=== PATIENT | female | born 1990 | race American Indian/Alaskan Native ===

== ENCOUNTER 2019-11-17 15:17 | Emergency (ER) | payer SELFPAY ==
--- NOTE | 2019-11-17 15:37 | Emergency Department Report ---
ED Psych HPI - General Chief Complaint: Psych Stated Complaint: MH Time Seen by Provider: 11/17/19 15:33 Source: RN/MD, EMS Mode of arrival: Stretcher Limitations: Altered Mental Status - History of Present Illness Initial Comments: Pt is a 29-year-old -[place] female that comes to the ER with suicidal ideation and actual intense/asked to hurt herself. She took 4 Motrin and drank a bunch of alcohol. On my initial exam she is moaning to deep sternal rub. I have asked the nurse to move her to a monitored room. Patient is being moved to room 18 where she can be monitored and evaluated for more detailed assessment. Ciwa assessments initiated. I am limited with history at this time given the patient's condition. No family present at the time. Per verbal report pt has been depressed after loss of child. MD Complaint: suicidal ideation, feels depressed Associated Psychiatric Symptoms: suicidal ideation Context: recent alcohol abuse Treatments Prior to Arrival: none If Self Harm: has acted on plan, intentional overdose - Related Data Home Medications Medication Instructions Recorded Confirmed Last Taken No Known Home Medications [No 11/17/19 11/17/19 Unknown Reported Home Medications] Allergies Allergy/AdvReac Type Severity Reaction Status Date / Time acetaminophen [From Percocet] AdvReac Hives Verified 11/17/19 15:23 oxycodone [From Percocet] AdvReac Hives Verified 11/17/19 15:23 ED Review of Systems ROS: Stated complaint: MH Other details as noted in HPI Comment: Unobtainable due to pts medical conditions ED Past Medical Hx - Past Medical History Previous Medical History?: No - Surgical History Past Surgical History?: No - Social History Substance Use Type: Alcohol - Medications Home Medications: Home Medications Medication Instructions Recorded Confirmed Last Taken Type No Known Home Medications [No 11/17/19 11/17/19 Unknown History Reported Home Medications] ED Physical Exam - General Limitations: No Limitations General appearance: appears intoxicated - Head Head exam: Present: normocephalic - Eye Eye exam: Present: normal appearance, PERRL - ENT ENT exam: Present: mucous membranes dry - Neck Neck exam: Present: normal inspection - Respiratory Respiratory exam: Present: normal lung sounds bilaterally. Absent: respiratory distress - Cardiovascular Cardiovascular Exam: Present: regular rate, normal rhythm. Absent: systolic murmur, diastolic murmur, rubs, gallop - GI/Abdominal GI/Abdominal exam: Present: soft, normal bowel sounds - Extremities Exam Extremities exam: Present: normal inspection - Back Exam Back exam: Present: normal inspection - Neurological Exam Neurological exam: Present: altered - Psychiatric Psychiatric exam: Present: depressed - Skin Skin exam: Present: warm, dry. Absent: rash ED Course Vital Signs 11/17/19 11/17/19 11/18/19 15:36 18:06 02:00 Temperature 98.6 F 98.2 F Pulse Rate 87 88 76 Respiratory 18 12 16 Rate Blood Pressure 95/59 91/63 82/51 [Right] O2 Sat by Pulse 97 99 97 Oximetry 11/18/19 11/18/19 07:51 12:18 Temperature 97.7 F Pulse Rate 83 95 H Respiratory 16 16 Rate Blood Pressure 97/60 114/87 [Right] O2 Sat by Pulse 100 Oximetry - Reevaluation(s) Reevaluation #1: 11/18/19 12:13 calm and cooperated MHE to see and dispo pt ED Medical Decision Making - Lab Data Result diagrams: 11/17/19 16:11 11/17/19 16:11 - EKG Data -: EKG Interpreted by Me - Radiology Data Radiology results: report reviewed, image reviewed - Medical Decision Making 1600 pt intoxicated and moaning to deep sternal rub I've asked Ariana Lewis RN to move her to a monitored bed for frequent assessments. CIWA assessments initiated. PLAN PSYCH HOLD TO MONITORED BED- RETAIL OPERATIONS SPECIALIST MED CLEARANCE LABS FOR MHE MHE EVAL CIWA ASSESSMENTS- RN TO REPORT CIWA >6 FOR PROVIDER TO [facility] IV E EXAM AND DISPO PER THEIR RECS. Vital Signs 11/17/19 15:36 Temperature 98.6 F Pulse Rate 87 Respiratory 18 Rate Blood Pressure 95/59 [Right] O2 Sat by Pulse 97 Oximetry Labs 11/17/19 11/17/19 11/17/19 16:11 16:11 16:11 WBC 7.2 RBC 4.43 Hgb 13.6 Hct 40.2 MCV 91 MCH 31 MCHC 34 RDW 14.2 Plt Count 332 Lymph % (Auto) 30.0 [place] % (Auto) 10.3 H Eos % (Auto) 2.0 Baso % (Auto) 0.7 Lymph # 2.1 [place] # 0.7 Eos # 0.1 Baso # 0.0 Seg Neutrophils % 57.0 Seg Neutrophils # 4.1 PT INR APTT Sodium 141 Potassium 3.6 Chloride 102.2 Carbon Dioxide 25 Anion Gap 17 BUN 9 Creatinine 0.7 Estimated GFR > 60 BUN/Creatinine Ratio 13 Glucose 84 Calcium 9.0 Magnesium Total Bilirubin 0.30 AST 14 ALT 9 Alkaline Phosphatase 59 Total Protein 7.3 Albumin 4.2 Albumin/Globulin Ratio 1.4 TSH HCG, Qual Salicylates < 0.3 L Acetaminophen Plasma/Serum Alcohol 11/17/19 11/17/19 11/17/19 16:11 16:11 16:11 WBC RBC Hgb Hct MCV MCH MCHC RDW Plt Count Lymph % (Auto) [place] % (Auto) Eos % (Auto) Baso % (Auto) Lymph # [place] # Eos # Baso # Seg Neutrophils % Seg Neutrophils # PT INR APTT Sodium Potassium Chloride Carbon Dioxide Anion Gap BUN Creatinine Estimated GFR BUN/Creatinine Ratio Glucose Calcium Magnesium Total Bilirubin AST ALT Alkaline Phosphatase Total Protein Albumin Albumin/Globulin Ratio TSH 0.668 HCG, Qual Salicylates Acetaminophen < 5.0 L Plasma/Serum Alcohol 0.19 H 11/17/19 11/17/19 11/17/19 16:11 16:23 16:23 WBC RBC Hgb Hct MCV MCH MCHC RDW Plt Count Lymph % (Auto) [place] % (Auto) Eos % (Auto) Baso % (Auto) Lymph # [place] # Eos # Baso # Seg Neutrophils % Seg Neutrophils # PT 12.6 INR 0.93 APTT 29.4 Sodium Potassium Chloride Carbon Dioxide Anion Gap BUN Creatinine Estimated GFR BUN/Creatinine Ratio Glucose Calcium Magnesium 2.20 Total Bilirubin AST ALT Alkaline Phosphatase Total Protein Albumin Albumin/Globulin Ratio TSH HCG, Qual Negative Salicylates Acetaminophen Plasma/Serum Alcohol medically cleared for MSE dispo per MHE 1530 SEE MHE NOTED PT BEING D/C ON SAFETY PLAN WITH 2 ADULT FAMILY MEMBERS INCLUDING HER MOTHER PT WILL FOLLOW UP OUTPUT VERBALIZES UNDERSTANDING OF DISCHARGE PLAN OF CARE. - Differential Diagnosis NABIL - Critical care attestation.: If time is entered above; I have spent that time in minutes in the direct care of this critically ill patient, excluding procedure time. ED Disposition Clinical Impression: Depression, Suicidal behavior Disposition: DC-01 TO HOME OR SELFCARE Is pt being admited?: No Does the pt Need Aspirin: No Condition: Stable Additional Instructions: FOLLOW UP PER MHE RECOMMENDATION SAFETY PLAN DISCUSSED AVOID DRUGS AND ALCOHOL DIET AND ACTIVITY TOLERATED Referrals: PAPO VARELA MD [Staff Physician] - 3-5 Days Time of Disposition: 12:14
[2019-11-17 16:40] LABS: Basophils % (Auto) 0.7 % (0.0-1.8); Eosinophils # (Auto) 0.1 K/mm3 (0.0-0.4); Hematocrit 40.2 % (30.3-42.9); Hemoglobin 13.6 gm/dl (10.1-14.3); Lymphocytes # (Auto) 2.1 K/mm3 (1.2-5.4); Mean Corpuscular HGB Conc 34 % (30-34); Mean Corpuscular Volume 91 fl (79-97); Monocytes # (Auto) 0.7 K/mm3 (0.0-0.8); Monocytes % (Auto) 10.3 % (0.0-7.3); Platelet Count 332 K/mm3 (140-440); Red Blood Count 4.43 M/mm3 (3.65-5.03); Red Cell Distribution Width 14.2 % (13.2-15.2)
[2019-11-17 16:50] LABS: Alanine Aminotransferase 9 units/L (7-56); Albumin 4.2 g/dL (3.9-5); BUN/Creatinine Ratio 13; Blood Urea Nitrogen 9 mg/dL (7-17); Hemolysis Index 17
[2019-11-17 17:04] LABS: INR 0.93 (0.87-1.13)
[2019-11-17 17:05] LABS: Partial Thromboplastin Time 29.4 Sec. (24.2-36.6)
[2019-11-17] MEDS ORDERED: THIAMINE 100 MG, FOLIC ACID 1 MG, MULTIPLE VITAMIN INJ, ADULT 10 ML in SODIUM CHLORIDE ... IV ONE (17:07)
--- NOTE | 2019-11-17 17:39 | XRay Report ---
CHEST 1 VIEW INDICATION / CLINICAL INFORMATION: Alcohol Intoxication. COMPARISON: None available. FINDINGS: SUPPORT DEVICES: None. HEART / MEDIASTINUM: No significant abnormality. LUNGS / PLEURA: No significant pulmonary or pleural abnormality. No pneumothorax. ADDITIONAL FINDINGS: No significant additional findings. IMPRESSION: No acute pulmonary or pleural abnormality. Signer Name: Gene Duffy MD FACR Signed: 11/17/2019 5:35 PM Workstation Name: [id number]
[2019-11-17 18:15] LABS: Amphetamine Screen,Urine PRESUMPTIVE NEGATIVE; Benzodiazepines Screen,Urine PRESUMPTIVE NEGATIVE; Cannabinoid Screen,Urine PRESUMPTIVE NEGATIVE; Cocaine Screen,Urine PRESUMPTIVE NEGATIVE; Methadone Screen,Urine PRESUMPTIVE NEGATIVE; Opiate Screen,Urine PRESUMPTIVE NEGATIVE
[2019-11-17 18:16] LABS: Bilirubin,Urine NEG (Negative); Blood,Urine NEG (Negative); Color,Urine Straw (Yellow); Protein,Urine <15 mg/dL mg/dL (Negative); Urobilinogen,Urine < 2.0 mg/dL (<2.0)
[2019-11-18 12:19] VITALS: BP 114/87
--- NOTE | 2019-11-18 12:52 | Consultation ---
History of Present Illness - Reason for Consult Consult date: 11/18/19 Reason for consult: Assess and manage mental health - Chief Complaint Chief complaint: Depression, SI - History of Present Psychiatric Illness Mrs. Doe is a 29 y/o black female who presented to the ER after her mom called 911 after the patient had taken pills and drank alcohol. The patient is very tearful and proceeds to tell me her daughter in a drowning accident. She says she feels "so guilty," and states her baby's absence has been "so overwhelming." But says she believes she's "been coping fine." "I'm undergoing a divorce and my life is a sh*t hole right now." The patient is sitting on side of the cot. She's talkative. Tearful. A/o x 4. She says she has joint custody of her son and right now she's having "separation anxiety." Mrs Doe says she took pills and tried to drown herself because she felt "anything was better than this constant yearning." When asked about sucidal ideation or thoughts of at the present time, the patient replied "No, I'm not suicidal. This has never happened before. Yesterday was a bad time. I have a son I have to live for. It would kill him. He's my everything. Yesterday was a big mistake." Mrs. Doe says she has no psychiatric history and says "I don't know what I was thinking. I promis I'm not going to hurt myself." She denies hallucinations of any kind. She says she has "difficulty sleeping sometimes." The patient says her appetite is "okay most of the times." Mrs. Doe says she has no fear or reservations of going home; "I have plenty of support, and my son needs me." PAST PSYCHIATRIC HISTORY: Diagnoses: Denies Suicide attempts or Self-harm behavior: this admit the first times Prior psychiatric hospitalizations: Denies Substance Abuse history: "[facility] in the past" Previous psychiatric medications tried: None Outpatient treatment: Denies PAST MEDICAL HISTORY: Denies, she states "I'm too healthy" Family Psychiatric History None reported or documented SOCIAL HISTORY Marital Status: , still finalizing divorce Living Arrangements: Mom and family Employment Status: Employed Access to guns/weapons: Denies Education: Some college History of Abuse: Denies Legal History: Charge with "inadequate supervision of her child" REVIEW OF SYSTEMS Constitutional: Negative for weight loss ENT: Negative for stridor Respiratory: Negative for cough or hemoptysis All other systems reviewed and are negative MENTAL STATUS General Appearance and Behavior: Tearful, dressed appropriately Cooperation: Cooperative Psychomotor Behavior: within normal limits Mood: sad, tearful Affect and affective range: Congruent with stated mood Thought Process: Goal-directed Thought Content: Within reality Speech: Normal volume and Regular rate and rhythm Intellectual Functioning Average Suicidal Ideation: Denies SI Homicidal Ideation: Denies HI Impulse Control: intact Insight and Judgment: normal insight and judgment Memory: Normal Attention: Normal Orientation: alert and oriented RECOMMENDATIONS Discontinue 1013 MEDICATIONS: *Lexapro 5mg po daily *Trazodone 50mg po qhs MEDICAL: Per primary team The patient verbalizes understanding that if suicidal ideation arises she should call 911 or the suicide hotline. DISPOSITION: Per primary team, no indication for acute inpatient psychiatric hospitalization at this time. The patient may discharge home once medically cleared. Follow up with PCP to be referred to outpatient psych for med management and ongoing- therapy LEGAL STATUS: Voluntary Will sign off. Thank you for this consult. The patient agreed on the treatment plan, understood the risk, benefit, alternative treatment, potential consequence of no treatment, and gave informed consent. Please contact with any questions and/or concerns. Medications and Allergies Allergies Allergy/AdvReac Type Severity Reaction Status Date / Time acetaminophen [From Percocet] AdvReac Hives Verified 11/17/19 15:23 oxycodone [From Percocet] AdvReac Hives Verified 11/17/19 15:23 Home Medications Medication Instructions Recorded Confirmed Last Taken Type No Known Home Medications [No 11/17/19 11/17/19 Unknown History Reported Home Medications] Mental Status Exam - Vital signs Last Vital Signs Temp 97.7 F 11/18/19 07:51 Pulse 95 H 11/18/19 12:18 Resp 16 11/18/19 12:18 BP 114/87 11/18/19 12:18 Pulse Ox 100 11/18/19 07:51 Results Result Diagrams: 11/17/19 16:11 11/17/19 16:11 Abnormal lab results 12/11/17/19 11/17/19 Range/Units 16:11 16:11 16:11 [place] % (Auto) 10.3 H (0.0-7.3) % Salicylates < 0.3 L (2.8-20.0) mg/dL Acetaminophen < 5.0 L (10.0-30.0) ug/mL Plasma/Serum Alcohol (0-0.07) % 11/17/19 Range/Units 16:11 [place] % (Auto) (0.0-7.3) % Salicylates (2.8-20.0) mg/dL Acetaminophen (10.0-30.0) ug/mL Plasma/Serum Alcohol 0.19 H (0-0.07) % All other labs normal.
[2019-11-18] MEDS ORDERED: traZODone 50 MG TAB PO SCH (22:00)
[2019-11-19] MEDS ORDERED: ESCITALOPRAM 10 MG TAB PO SCH (10:00)
== END 2019-11-18 15:51 | disposition home or self-care (01) ==
LOC: ED 15:17
DX: F32.9 Major depressive disorder, single episode, unspecified (principal); Z88.6 Allergy status to analgesic agent; Z88.5 Allergy status to narcotic agent
CPT/HCPCS: 36415; 71045; 80053; 80307; 81001; 83735; 84443; 84703; 85025; 85610; 85730; 93005; 93010; 96365; 96366; 99285; J3411; J7030; 80320; G0480